=== PATIENT | female | born 1990 | race Caucasian/White ===

== ENCOUNTER 2021-10-13 09:42 | Emergency (ER) | payer OTHER, BC ==
[2021-10-13 09:58] VITALS: BP 160/94; PULSE 97; RESP 18; TEMP 98.6
--- NOTE | 2021-10-13 10:09 | ED ---
General Adult HPI - General Chief complaint: Needlestick/Exposure Stated complaint: [facility], Needle stick Time Seen by Provider: 10/13/21 09:45 Source: patient, RN notes reviewed Mode of arrival: ambulatory Limitations: no limitations - History of Present Illness Initial comments: 31-year-old female presents emergency Department with chief complaint of needl estick. Patient states she was giving a vaccine to a 2-month-old states that the child moved causing needle slipped poked her in the right hand. Her tetanus is up-to-date. There is no report of communicable diseases in the 2-month-old child. Patient offers no other complaints. - Related Data Allergies Allergy/AdvReac Type Severity Reaction Status Date / Time No Known Allergies Allergy Verified 10/13/21 09:58 Review of Systems ROS Statement: Those systems with pertinent positive or pertinent negative responses have been documented in the HPI. ROS Other: All systems not noted in ROS Statement are negative. Past Medical History Past Medical History: Asthma Additional Past Medical History / Comment(s): PCOS History of Any Multi-Drug Resistant Organisms: None Reported Past Surgical History: No Surgical Hx Reported Past Psychological History: No Psychological Hx Reported Smoking Status: Never smoker Past Alcohol Use History: Occasional Past Drug Use History: None Reported General Exam Limitations: no limitations General appearance: alert, in no apparent distress Head exam: Present: atraumatic, normocephalic, normal inspection Respiratory exam: Present: normal lung sounds bilaterally. Absent: respiratory distress, wheezes, rales, rhonchi, stridor Cardiovascular Exam: Present: regular rate, normal rhythm, normal heart sounds. Absent: systolic murmur, diastolic murmur, rubs, gallop, clicks Extremities exam: Present: other (Small puncture wound in the right hand, no active bleeding) Course Vital Signs 10/13/21 09:54 Temperature 98.6 F Pulse Rate 97 Respiratory 18 Rate Blood Pressure 160/94 O2 Sat by Pulse 95 Oximetry Medical Decision Making - Medical Decision Making Patient had needlestick blood work was drawn, patient does not want prophylaxis as this is very low risk and no history. Disposition Clinical Impression: Needle stick injury Disposition: HOME SELF-CARE Condition: Stable Instructions (If sedation given, give patient instructions): Needle Stick Injuries (ED) Additional Instructions: Please return to the Emergency Department if symptoms worsen or any other concerns. Is patient prescribed a controlled substance at d/c from ED?: No Referrals: Erik Quintero MD [Primary Care Provider] - 1-2 days Time of Disposition: 10:09
[2021-10-13 14:46] LABS: Hepatitis B Surface AB- Quant 33.4 mIU/mL; Hepatitis B Surface Antibody Reactive (Nonreactive)
[2021-10-13 17:07] LABS: Hepatitis C IgG Antibody Nonreactive (Nonreactive)
== END 2021-10-13 11:25 | disposition home or self-care (01) ==
LOC: EC 09:42
DX: T14.8XXA Other injury of unspecified body region, initial encounter (principal); J45.909 Unspecified asthma, uncomplicated; W46.1XXA Contact with contaminated hypodermic needle, initial encounter
CPT/HCPCS: 36415; 86706; 86803; 87390; 99283

== ENCOUNTER 2023-01-07 08:48 | Emergency (ER) | payer BC, OTHER ==
[2023-01-07 08:54] VITALS: BP 135/89; PULSE 100; RESP 20; TEMP 98.1
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
== END 2023-01-07 10:42 | disposition home or self-care (01) ==
LOC: EC 08:48
DX: O9A.212 Injury, poisoning and certain other consequences of external causes complicating pregnancy, second trimester (principal); R10.9 Unspecified abdominal pain; M54.50 Low back pain, unspecified; O99.512 Diseases of the respiratory system complicating pregnancy, second trimester; J45.909 Unspecified asthma, uncomplicated; Z3A.24 24 weeks gestation of pregnancy; Z88.0 Allergy status to penicillin; V89.2XXA Person injured in unspecified motor-vehicle accident, traffic, initial encounter; Y92.410 Unspecified street and highway as the place of occurrence of the external cause
CPT/HCPCS: 76815; 99284